=== PATIENT | male | born 1985 | race African-American/Black ===

== ENCOUNTER 2016-06-15 11:45 | Emergency (ER) | payer MEDICAID ==
[~2016-06-15] VITALS: Ht 175.3 cm; Wt 82.1 kg
[2016-06-15 13:36] VITALS: BP 132/74
== END 2016-06-15 14:24 | disposition home or self-care (01) ==
LOC: ER 12:02
DX: S01.112D Laceration without foreign body of left eyelid and periocular area, subsequent encounter (principal); Z48.01 Encounter for change or removal of surgical wound dressing; F17.210 Nicotine dependence, cigarettes, uncomplicated